=== PATIENT | female | born 1990 | race Caucasian/White ===

== ENCOUNTER → 2019-12-05 | Outpatient (CLI) | payer OTHER ==
[~2019-12-05] MED LIST: AMOX500 PO; BCP; CEPH250A PO; CEPH500 PO; CODACE30 PO; CODGUAEL PO; CYCL10 PO; DOXY100 PO; FLUO10; FLUO20 PO; HYDACE5 PO; IBUP600; IBUP600 PO; IBUP800 PO; LORA10ER PO; MULVITMINE PO; OMEP40CA12 PO; PHENA200 PO; PROM25 PO; Percocet 5-3251 EACH PO; RANI150 PO; RXCODACET PO; RXCODGUASY PO; RXCYCL10 PO; SUCR1 PO; SULTRIDS PO; TRAM50 PO; Ultram50 MG PO; Zofran Odt4 MG SL
[2019-12-05 11:39] LABS: BASOPHILS ABSOLUTE AUTO 0.03 K/mm3 (0.00-0.23); BASOPHILS PERCENT AUTO 0 % (0-2); EOSINOPHILS ABSOLUTE AUTO 0.15 K/mm3 (0.00-0.68); EOSINOPHILS PERCENT AUTO 2 % (0-6); Hematocrit 38.7 % (33.0-51.0); Hemoglobin 12.7 g/dL (11.5-16.0); IMMATURE GRAN ABSOLUTE AUTO 0.02 K/mm3 (0.00-0.10); IMMATURE GRAN PERCENT AUTO 0 % (0-1); LYMPHOCYTES ABSOLUTE AUTO 2.44 K/mm3 (0.84-5.20); LYMPHOCYTES PERCENT AUTO 29 % (21-46); MONOCYTES ABSOLUTE AUTO 0.47 K/mm3 (0.16-1.47); MONOCYTES PERCENT AUTO 6 % (4-13); Mean Corpuscular HGB 28.3 pg (26.0-34.0); Mean Corpuscular HGB Conc 32.8 g/dL (31.5-36.5); Mean Corpuscular Volume 86 fL (80-100); Mean Platelet Volume 10.1 fL (9.1-12.4); NEUTROPHILS ABSOLUTE AUTO 5.21 K/mm3 (1.96-9.15); NEUTROPHILS PERCENT AUTO 63 % (41-73); Platelet Count 275 K/mm3 (150-400); RDW Coefficient Variation 12.1 % (11.7-14.2); RDW Standard Deviation 38.4 fL (35.1-46.3); Red Blood Cell Count 4.49 M/mm3 (3.80-5.20); White Blood Cell Count 8.32 K/mm3 (4.00-11.30)
[2019-12-05 11:54] LABS: Alanine Aminotransfer (ALT/SGP 57 U/L (12-78); Albumin/Globulin Ratio 0.9 (0.8-1.8); Alk Phos 114 U/L (40-126); Anion Gap 8 mmol/L (6-16); Aspartate Aminotrans (AST/SGOT 23 U/L (12-37); Bilirubin, Total 0.3 mg/dL (0.1-1.0); Blood Urea Nitrogen 15 mg/dL (8-24); Bun/Creatinine Ratio 15.5 (12.0-20.0); CO2, Blood 27 mmol/L (21-32); Calcium, Blood 9.4 mg/dL (8.5-10.1); Chloride, Blood 100 mmol/L (98-108); Creatinine, Blood 0.97 mg/dL (0.40-1.00); Globulin, Blood 4.3 g/dL (2.2-4.0); Glomerular Filtration Rate >60 (60-); Glucose, Blood 91 mg/dL (70-99); Potassium, Blood 3.8 mmol/L (3.5-5.5); Sodium, Blood 135 mmol/L (136-145); Total Protein, Blood 8.3 g/dL (6.4-8.2)
== END | disposition home or self-care (01) ==
LOC: LAB SHORT 11:35 → LAB EV 11:35
PROVIDERS: Family Medicine
DX: N39.0 Urinary tract infection, site not specified (principal)
CPT/HCPCS: 80053; 85025

== ENCOUNTER → 2020-11-12 | Outpatient (CLI) | payer OTHER, BC | LOC: LAB SHORT 13:30 → LAB 13:30 | DX: J02.9 Acute pharyngitis, unspecified (principal) | CPT/HCPCS: 87081 ==

== ENCOUNTER 2023-02-25 20:00 | Observation (INO) | payer OTHER ==
[~2023-02-25] VITALS: Ht 160 cm; Wt 91.8 kg
[~2023-02-25 20:00] MED LIST changes: +ACET500 PO; +Ibuprofen600 MG PO
[2023-02-25 20:27] LABS: Source, Urine Clean Catch
[2023-02-25 20:32] LABS: BASOPHILS ABSOLUTE AUTO 0.05 K/mm3 (0.00-0.23); BASOPHILS PERCENT AUTO 0 % (0-2); EOSINOPHILS ABSOLUTE AUTO 0.28 K/mm3 (0.00-0.68); EOSINOPHILS PERCENT AUTO 2 % (0-6); Hemoglobin 12.4 g/dL (11.5-16.0); IMMATURE GRAN ABSOLUTE AUTO 0.03 K/mm3 (0.00-0.10); IMMATURE GRAN PERCENT AUTO 0 % (0-1); LYMPHOCYTES ABSOLUTE AUTO 3.43 K/mm3 (0.84-5.20); LYMPHOCYTES PERCENT AUTO 28 % (21-46); MONOCYTES ABSOLUTE AUTO 0.72 K/mm3 (0.16-1.47); MONOCYTES PERCENT AUTO 6 % (4-13); Mean Corpuscular HGB 28.6 pg (26.0-34.0); Mean Corpuscular HGB Conc 33.5 g/dL (31.5-36.5); Mean Corpuscular Volume 86 fL (80-100); Mean Platelet Volume 9.7 fL (9.1-12.4); NEUTROPHILS ABSOLUTE AUTO 7.66 K/mm3 (1.96-9.15); NEUTROPHILS PERCENT AUTO 63 % (41-73); Platelet Count 292 K/mm3 (150-400); RDW Coefficient Variation 12.9 % (11.7-14.2); RDW Standard Deviation 39.9 fL (35.1-46.3); Red Blood Cell Count 4.33 M/mm3 (3.80-5.20); White Blood Cell Count 12.17 K/mm3 (4.00-11.30)
[2023-02-25 20:35] LABS: Bilirubin, Urine Neg (Neg); Blood, Urine 1+ (Neg); Glucose Qualitative, Urine Neg (Neg); Ketones, Urine Neg (Neg); Leukocyte Esterase, Urine 1+ (Neg); Nitrite, Urine Neg (Neg); Protein, Urine Neg (Neg); Urobilinogen, Urine NORM (Normal)
[2023-02-25 20:44] LABS: Appearance, Urine Hazy (Clear); Color, Urine Yellow (P-Yellow)
[2023-02-25 20:45] LABS: Bacteria Many /hpf; Red Blood Cells, Urine 0-2 /hpf (0-2); Squamous Epithelial Cells Many /hpf (Few)
[2023-02-25 20:56] LABS: Albumin, Blood 3.8 g/dL (3.4-5.0); Albumin/Globulin Ratio 0.9 (0.8-1.8); Bilirubin, Total 0.2 mg/dL (0.1-1.0); Bun/Creatinine Ratio 15.5 (12.0-20.0); Calcium, Blood 8.7 mg/dL (8.5-10.1); Creatinine, Blood 0.9 mg/dL (0.40-1.00); Globulin, Blood 4.2 g/dL (2.2-4.0); Potassium, Blood 3.9 mmol/L (3.5-5.5)
[2023-02-26 01:15] VITALS: BP 126/85
--- NOTE | 2023-02-26 05:51 | NUR ---
ARRIVAL TO SURGICAL UNIT. LATE ENTRY. PT ARRIVED FROM THE ER VIA HOSPITAL BED AT 0105 ON 02/26/23. PT TRANSFERED TO ROOM HOSPITAL BED WELL WITH CORD MANAGEMENT FOR IV LINE. PT ORIENTED TO ROOM, VITALS AND WEIGHT OBTAINED. PT ABLE TO GIVE MEDICAL HX. PT RESTING WITH CALL LIGHT IN REACH.
[2023-02-26 07:22] VITALS: BP 117/78
--- NOTE | 2023-02-26 07:45 | NUR ---
SHIFT SUMMARY NOC. PT A/O X4. PT DENIED N/V AFTER THIS RN ASSUMED CARE. PT RATED PAIN 8/10 WHICH PT WAS MEDICATED WITH RELIEF. PT INDEPENDENT IN THE ROOM ASIDE FROM CORD MANAGEMENT. PT NPO STATUS. PT DENIES URINARY SYMPTOMS. PT RESTED WITH EYES CLOSED AND CALL LIGHT IN REACH.
[2023-02-26 15:40] VITALS: BP 114/80
--- NOTE | 2023-02-26 17:07 | NUR ---
SUMMARY NO ACUTE CHANGES T/O SHIFT. MEDICATED ONCE DURING SHIFT PER ORDERS FOR PAIN. PT'S SURGERY DELAYED UNTIL 02/27/23 AM. PT MAY HAVE CLEAR LIQUIDS AND CRACKERS UNTIL MN AND THEN NPO AFTER MN IN PREPARATION FOR SURGERY. CALL LIGHT IN REACH.
[2023-02-26 19:19] VITALS: BP 106/74
[2023-02-27] VITALS (15 sets, daily range): BP systolic 109–135; BP diastolic 67–87
--- NOTE | 2023-02-27 07:41 | NUR ---
PT TAKEN TO OR.
[2023-02-27] MEDS ORDERED: OXYC5 PO (11:31)
--- NOTE | 2023-02-27 16:27 | NUR ---
PT REPROTS PAIN IS TOLERABLE, DC'D HOME, DC INSTRUCTIONS GIVEN, VERBALIZED UNDERSTANDING.
== END 2023-02-27 16:29 | disposition home or self-care (01) ==
LOC: ER 20:00 → SURS 20:01
PROVIDERS: Physician Assistant; ADMIT Surgery
PROC: 0FT44ZZ Resection of Gallbladder, Percutaneous Endoscopic Approach (ICD-10-PCS; principal; 2023-02-27 08:00)
DX: K80.12 Calculus of gallbladder with acute and chronic cholecystitis without obstruction (principal); K21.9 Gastro-esophageal reflux disease without esophagitis; Z72.0 Tobacco use
CPT/HCPCS: 76705; 80053; 81001; 81025; 85025; 87086; 88304; 94762; 96374; 96375; 96376; 99285-25; A9270; G0378; J0690; J1100; J1170; J1885; J2250; J2371; J2405; J2704; J3010; J7120

== ENCOUNTER → 2023-08-30 | Outpatient (CLI) | payer OTHER ==
[~2023-08-30] MED LIST changes: +OXYC5 PO
== END ==
LOC: LAB SHORT 11:06 → LAB 11:06
DX: N39.0 Urinary tract infection, site not specified (principal)
CPT/HCPCS: 87086

== ENCOUNTER → 2025-03-18 | Outpatient (CLI) | payer OTHER | END | disposition home or self-care (01) | LOC: LAB SHORT 18:00 → LAB 18:00 | DX: N39.0 Urinary tract infection, site not specified (principal) | CPT/HCPCS: 87077; 87086; 87186 ==